=== PATIENT | female | born 1970 | race African-American/Black ===

== ENCOUNTER 2022-08-22 03:53 | Inpatient (IN) ==
[2022-08-22] MEDS ORDERED: ONDANSETRON 4 MG/2 ML VIAL IV STA (04:11)
[2022-08-22] MEDS ORDERED: ALBUTEROL/IPRATROPIUM 3 ML NEB RESP TX STA (04:11)
[2022-08-22] MEDS ORDERED: NITROGLYCERIN 2% OINT 1 INCH/GM PACK TOP STA (04:11)
[2022-08-22] MEDS ORDERED: MORPHINE 2 MG/1 ML SYRINGE IV STA (04:11)
[2022-08-22] MEDS ORDERED: hydrALAZINE 20 MG/1 ML VIAL IV STA (04:11)
[2022-08-22] MEDS ORDERED: methylPREDNISolone SOD SUC 125 MG/2 ML VIAL IV STA (04:11)
[2022-08-22] MEDS ORDERED: ASPIRIN 325 MG TABLET PO STA (04:11)
[2022-08-22] MEDS ORDERED: FUROSEMIDE 100 MG/10 ML VIAL IV STA (04:11)
[2022-08-22 04:52] LABS: Basophils # 0.1 10*3/uL (0.0-0.2); Basophils % 0.7 % (0.0-0.8); Eosinophils # 0.3 10*3/uL (0.0-0.87); Eosinophils % 4.6 % (0.00-10.9); Hematocrit 35.4 VOL% (35.7-47.0); Hemoglobin 11.3 GM/DL (12.0-16.0); Immature Granulocytes % 0.3 %; Immature Granulocytes Absolute 0.02 #; Lymphocytes % 27.4 % (21.3-54.2); Mean Corpuscular HGB Conc 31.9 GM/DL (32-36); Mean Corpuscular Volume 91.9 FL (87-102); Mean Platelet Volume 11.2 FL (9.6-12.0); Monocytes # 0.6 10*3/uL (0.11-0.8); Monocytes % 7.8 % (1.7-12.7); Neutrophils % 59.2 % (38.7-73.9); Platelet Count 221 T/CUMM (130-400); Red Blood Count 3.85 MC/CUMM (3.8-5.5); Red Cell Distribution Width 13.5 % (9.3-17.3); White Blood Count 7.2 T/CUMM (4-12)
[2022-08-22 05:03] LABS: INR 0.9; PT Patient Result 10.4 SECS (10.1-12.1)
[2022-08-22 05:21] LABS: Alanine Aminotransferase 20 U/L (13-56); Albumin 2.8 G/DL (3.4-5.0); Alkaline Phosphatase 99 U/L (45-117); Aspartate Amino Transferase 18 U/L (0-37); Bilirubin,Total < 0.39 MG/DL (0.20-1.00); Blood Urea Nitrogen 31 MG/DL (7-18); Calcium 8.6 MG/DL (8.5-10.1); Carbon Dioxide 27 MMOL/L (21-32); Chloride 101 MMOL/L (98-107); Glucose 341 MG/DL (74-106); Osmolality,Calculated 285.4 MOS/KG (273-304); Sodium 133 MMOL/L (136-145); Total Protein 7.5 G/DL (6.4-8.2)
[2022-08-22] MEDS ORDERED: amLODIPine 5 MG TABLET PO STA (05:23)
[2022-08-22] MEDS ORDERED: INSULIN REGULAR 100 UNIT/ML SUBCUT STA (05:23)
[2022-08-22] MEDS ORDERED: ENOXAPARIN 100 MG/ML SYRINGE SUBCUT STA (05:23)
[2022-08-22] MEDS ORDERED: ONDANSETRON 4 MG/2 ML VIAL IV PRN (05:51)
[2022-08-22] MEDS ORDERED: DEXTROSE 10% 250 ML BAG IV PRN (05:51)
[2022-08-22] MEDS ORDERED: GLUCAGON 1 MG VIAL IM PRN (05:51)
[2022-08-22] MEDS ORDERED: MORPHINE 2 MG/1 ML SYRINGE IV PRN (05:51)
[2022-08-22] MEDS ORDERED: ACETAMINOPHEN 325 MG TABLET PO PRN (05:51)
[2022-08-22] MEDS ORDERED: hydrALAZINE 20 MG/1 ML VIAL IV PRN (05:51)
[2022-08-22] MEDS ORDERED: DEXTROSE 50% 25 GM/50 ML VIAL IV PRN (05:51)
[2022-08-22 08:01] LABS: Mucus,Urine Occasional /LPF (Occasional); RBC,Urine 2 /HPF (0-4); Squamous Epithelial Cell,Urine Occasional /HPF (0-10)
[2022-08-22 08:02] LABS: Bilirubin,Urine Negative (Negative); Blood, Urine Negative (Negative); Glucose,Urine (UA) >1000 mg/dL (Negative); Ketones,Urine Negative (Negative); Nitrite,Urine Negative (Negative); Protein,Urine 100 mg/dL (Negative); Urine Appearance ]C (Clear); Urine Color Yellow (Yellow); Urine Urobilinogen 0.2 eU/dL (<2.0)
[2022-08-22] MEDS: INSULIN LISPRO 100 UNIT/ML SUBCUT SCH ×4 (08:28→22:03)
[2022-08-22] MEDS: ATORVASTATIN 80 MG TABLET PO SCH (08:51)
[2022-08-22] MEDS: GABAPENTIN 300 MG CAPSULE PO SCH ×2 (08:51→22:02)
[2022-08-22] MEDS: PANTOPRAZOLE 40 MG TABLET PO SCH (08:51)
[2022-08-22] MEDS: carvediloL 12.5 MG TABLET PO SCH ×2 (08:51→22:02)
[2022-08-22] MEDS: LOSARTAN 50 MG TABLET PO SCH (08:51)
[2022-08-22] MEDS ORDERED: carvediloL 6.25 MG TABLET PO SCH (09:00)
[2022-08-22] MEDS: FUROSEMIDE 40 MG/4 ML VIAL IV SCH ×2 (10:08→16:18)
[2022-08-22] MEDS ORDERED: INFLUENZA VIRUS VACCINE 0.5 ML SYRINGE IM ONE (21:00)
[2022-08-22] MEDS: INSULIN GLARGINE 100 UNIT/ML SUBCUT SCH (22:03)
[2022-08-23] MEDS: INSULIN LISPRO 100 UNIT/ML SUBCUT SCH ×6 (01:45→21:48)
[2022-08-23 06:00] LABS: Basophils % 0.1 % (0.0-0.8); Hematocrit 31.1 VOL% (35.7-47.0); Hemoglobin 10.2 GM/DL (12.0-16.0); Immature Granulocytes % 0.6 %; Immature Granulocytes Absolute 0.07 #; Lymphocytes # 1.5 10*3/uL (1.4-4.0); Lymphocytes % 12.7 % (21.3-54.2); Mean Corpuscular HGB Conc 32.8 GM/DL (32-36); Mean Corpuscular Volume 89.6 FL (87-102); Mean Platelet Volume 11.5 FL (9.6-12.0); Monocytes # 1.1 10*3/uL (0.11-0.8); Monocytes % 9.6 % (1.7-12.7); Platelet Count 220 T/CUMM (130-400); Red Blood Count 3.47 MC/CUMM (3.8-5.5); Red Cell Distribution Width 13.6 % (9.3-17.3); White Blood Count 11.7 T/CUMM (4-12)
[2022-08-23 06:13] LABS: Calcium 8.6 MG/DL (8.5-10.1); Osmolality,Calculated 287.8 MOS/KG (273-304); Potassium 4.4 MMOL/L (3.5-5.1)
[2022-08-23 06:18] LABS: Risk Ratio 3.43; VLDL Cholesterol 29.2 MG/DL
[2022-08-23] MEDS: PANTOPRAZOLE 40 MG TABLET PO SCH (09:50)
[2022-08-23] MEDS: LOSARTAN 50 MG TABLET PO SCH (09:50)
[2022-08-23] MEDS: FUROSEMIDE 40 MG/4 ML VIAL IV SCH (09:50)
[2022-08-23] MEDS: ASPIRIN 325 MG TABLET PO SCH (09:50)
[2022-08-23] MEDS: GABAPENTIN 300 MG CAPSULE PO SCH ×2 (09:51→21:47)
[2022-08-23] MEDS: carvediloL 12.5 MG TABLET PO SCH ×2 (09:51→21:47)
[2022-08-23] MEDS: ATORVASTATIN 80 MG TABLET PO SCH (09:51)
[2022-08-23] MEDS ORDERED: SIMETHICONE CHEW 125 MG TABLET PO PRN (11:24)
[2022-08-23] MEDS ORDERED: INSULIN GLARGINE 100 UNIT/ML SUBCUT SCH (21:24)
[2022-08-23] MEDS: AMITRIPTYLINE 25 MG TABLET PO SCH (21:47)
[2022-08-23] MEDS: INSULIN GLARGINE 100 UNIT/ML SUBCUT SCH ×2 (21:48)
[2022-08-24] MEDS: INSULIN LISPRO 100 UNIT/ML SUBCUT SCH ×6 (04:22→21:39)
[2022-08-24 05:24] LABS: Albumin 2.6 G/DL (3.4-5.0); Calcium 8.1 MG/DL (8.5-10.1); Osmolality,Calculated 289.2 MOS/KG (273-304); Phosphorous 5.2 MG/DL (2.5-4.9); Potassium 4.6 MMOL/L (3.5-5.1)
[2022-08-24] MEDS: SODIUM CHLORIDE 0.9% 1,000 ML IV SCH (08:30)
[2022-08-24] MEDS ORDERED: SPIRONOLACTONE 25 MG TABLET PO SCH (09:00)
[2022-08-24] MEDS ORDERED: LIDOCAINE 2% 5 ML VIAL ONE (09:43)
[2022-08-24] MEDS ORDERED: propofoL 200 MG/20 ML VIAL IV ONE (09:43)
[2022-08-24] MEDS: carvediloL 12.5 MG TABLET PO SCH (10:23)
[2022-08-24] MEDS: ATORVASTATIN 80 MG TABLET PO SCH (10:23)
[2022-08-24] MEDS: GABAPENTIN 300 MG CAPSULE PO SCH ×2 (10:23→21:39)
[2022-08-24] MEDS: ASPIRIN 325 MG TABLET PO SCH (10:24)
[2022-08-24] MEDS: PANTOPRAZOLE 40 MG TABLET PO SCH (10:24)
[2022-08-24] MEDS ORDERED: DEXTROSE 50% 25 GM/50 ML VIAL IV PRN (11:24)
[2022-08-24] MEDS ORDERED: GLUCAGON 1 MG VIAL IM PRN (11:24)
[2022-08-24] MEDS: carvediloL 25 MG TABLET PO SCH (21:39)
[2022-08-24] MEDS: AMITRIPTYLINE 25 MG TABLET PO SCH (21:39)
[2022-08-25 04:37] LABS: Basophils % 0.5 % (0.0-0.8); Eosinophils # 0.3 10*3/uL (0.0-0.87); Eosinophils % 3.4 % (0.00-10.9); Hematocrit 34.6 VOL% (35.7-47.0); Hemoglobin 11.1 GM/DL (12.0-16.0); Immature Granulocytes % 0.3 %; Immature Granulocytes Absolute 0.03 #; Lymphocytes # 3.4 10*3/uL (1.4-4.0); Lymphocytes % 38.9 % (21.3-54.2); Mean Corpuscular HGB Conc 32.1 GM/DL (32-36); Mean Corpuscular Volume 90.3 FL (87-102); Mean Platelet Volume 11.4 FL (9.6-12.0); Monocytes # 0.8 10*3/uL (0.11-0.8); Neutrophils % 47.9 % (38.7-73.9); Platelet Count 247 T/CUMM (130-400); Red Blood Count 3.83 MC/CUMM (3.8-5.5); White Blood Count 8.8 T/CUMM (4-12)
[2022-08-25 04:52] LABS: Calcium 8.2 MG/DL (8.5-10.1); Osmolality,Calculated 289.1 MOS/KG (273-304); Potassium 4.6 MMOL/L (3.5-5.1)
[2022-08-25] MEDS: INSULIN GLARGINE 100 UNIT/ML SUBCUT SCH ×2 (05:54)
[2022-08-25] MEDS: INSULIN LISPRO 100 UNIT/ML SUBCUT SCH ×4 (05:55→15:58)
[2022-08-25] MEDS ORDERED: (Semaglutide [Ozempic] 1 mg/dose (2 mg/1.5 mL) Pen Injector) SUBCUT SCH (09:24)
[2022-08-25] MEDS: GABAPENTIN 300 MG CAPSULE PO SCH (09:32)
[2022-08-25] MEDS: carvediloL 25 MG TABLET PO SCH (09:32)
[2022-08-25] MEDS: ATORVASTATIN 80 MG TABLET PO SCH (09:32)
[2022-08-25] MEDS: ASPIRIN 325 MG TABLET PO SCH (09:32)
[2022-08-25] MEDS: PANTOPRAZOLE 40 MG TABLET PO SCH (09:33)
[2022-08-25] MEDS: SODIUM CHLORIDE 0.9% 1,000 ML IV SCH (12:36)
[2022-08-25 12:49] VITALS: BP 148/78
[2022-09-04] MEDS ORDERED: BISACODYL 5 MG TABLET PO ONE (12:00)
[2022-09-04] MEDS ORDERED: POLYETHYLENE GLYCOL POWDER 255 GM BOTTLE PO ONE (18:00)
== END 2022-08-25 13:30 | disposition home or self-care (01) | DRG 291 ==
LOC: N.ED 03:53 → N.EDINP 05:51 → N.TELES 14:30
PROVIDERS: ADMIT Internal Medicine Geriatric Medicine; ATTEND Internal Medicine Geriatric Medicine